=== PATIENT | male | born 1995 | race Caucasian/White ===

== ENCOUNTER 2019-02-06 10:16 | Day surgery (SDC) | payer BC ==
[~2019-02-06] VITALS: Ht 180.3 cm; Wt 80.0 kg
[2019-02-06 11:20] VITALS: BP 128/73; PULSE 66; TEMP 97.8
[2019-02-06] MEDS ORDERED: NORCO 325 MG-51 TAB PO (12:48)
[2019-02-06] MEDS ORDERED: MOTRIN 600600 MG/TAB PO (15:39)
[2019-02-06 15:43] VITALS: TEMP 98
[2019-02-06 16:00] VITALS: BP 122/55; PULSE 57
--- NOTE | 2019-02-06 16:00 | NUR ---
Patient returns to room 6 per cart from PACU and is awake and alert. Temp 97.4 and room air sats 97%. Right foot dressing clean and dry and denies pain at present time. Foot of cart elevated. IV fluids infusing and denies nausea. Given water to drink.
[2019-02-06 16:15] VITALS: BP 129/62; PULSE 51
--- NOTE | 2019-02-06 16:15 | NUR ---
Drinking water and continues to deny pain or nausea. Dago wrap dressing dry on the right foot.
[2019-02-06 16:30] VITALS: BP 127/67; PULSE 61
--- NOTE | 2019-02-06 16:30 | NUR ---
Patient is eating toast and applesauce.
[2019-02-06 16:45] VITALS: BP 104/87; PULSE 49
--- NOTE | 2019-02-06 16:45 | NUR ---
States that he is ready to go home. Instructed to take Motrin 600mg every 6 hours for pain and to begin at 2100. Instructed to take Motrin with food or milk.
--- NOTE | 2019-02-06 16:55 | NUR ---
IV discontinued and patient dresses self. Provided follow up appointment date and time and office number for questions and concerns. Instructed on remaining non-weight bearing for the next week and to keep dressing dry until follow up for suture removal.
--- NOTE | 2019-02-06 17:05 | NUR ---
Patient dismissed to home per private vehicle driven by friend with instructions in hand. Patient escorted to the ER entrance with use of knee scooter to keep weight off the right foot and assisted into car with instructions in hand.
== END 2019-02-06 17:05 | disposition home or self-care (01) ==
LOC: SDCO 10:16
DX: S90.851A Superficial foreign body, right foot, initial encounter (principal); Z80.3 Family history of malignant neoplasm of breast; Z80.8 Family history of malignant neoplasm of other organs or systems; F17.210 Nicotine dependence, cigarettes, uncomplicated
CPT/HCPCS: J0690; J1100; J1885; J2405; J2704; J3010; J7120

== ENCOUNTER 2019-06-06 04:04 | Emergency (ER) | payer BC ==
[~2019-06-06] VITALS: Ht 180.3 cm; Wt 84.1 kg
[~2019-06-06 04:04] MED LIST: MOTRIN 600600 MG/TAB PO; NORCO 325 MG-51 TAB PO
[2019-06-06 04:43] LABS: TRICYCLIC ANTIDEPRESS URINE NEGATIVE
[2019-06-06 04:43] LABS: BASO % 0.4 % (0.0-2.0); EOS # 0.2 (0.0-0.7); EOS % 1.6 % (0-4.0); GRAN # 6.3 (1.4-6.5); GRAN % 67.4 % (42.2-75.2); HEMATOCRIT 43.5 % (42.0-52.0); HEMOGLOBIN 15.3 g/dl (13.5-18.0); LYMPH # 2.3 (1.2-3.4); LYMPH % 24.5 % (20.0-51.0); MEAN CELL VOLUME 91 fl (80.0-100.0); MEAN CORPUSCULAR HEMOGLOBIN 32 pg (27.0-31.0); MEAN CORPUSCULAR HGB CONC 35 g/dl (33.0-37.0); MONO # 0.5 (0.1-0.6); MONO % 5.7 % (1.7-9.3); PLATELET COUNT 243 K/mm3 (130-400); RED BLOOD COUNT 4.77 M/mm3 (4.20-5.60); REDCELL DISTRIBUTION WIDTH-CV 11.5 % (11.5-14.5)
[2019-06-06 04:57] LABS: ACETAMINOPHEN < 10 ug/mL (10-30); ALANINE AMINOTRANSFERASE 22 U/L (21-72); ALBUMIN 5.3 gm/dL (3.5-5.0); ALCOHOL(ethanol),MEDICAL 173 mg/dL; ALKALINE PHOSPHATASE 87 U/L (50-136); ANION GAP 16 mmol/L (7-16); AST,SGOT 27 U/L (15-37); BILIRUBIN,TOTAL 0.3 mg/dL (0.0-1.0); BLOOD UREA NITROGEN 12 mg/dL (9-20); CALCIUM 9.5 mg/dL (8.4-10.2); CARBON DIOXIDE 24 mmol/L (22-30); CHLORIDE 105 mmol/L (98-107); CREATININE, serum 0.94 (0.66-1.25); GLUCOSE 107 mg/dL (74-106); SALICYLATE < 1.0 mg/dL; SODIUM 145 mmol/L (137-145); TOTAL PROTEIN 8.7 gm/dL (6.4-8.2)
[2019-06-06 09:05] VITALS: BP 145/68; TEMP 98.3
[2019-06-06 11:20] VITALS: PULSE 73
== END 2019-06-06 11:20 | disposition home or self-care (01) ==
LOC: COL.ER 04:04
PROVIDERS: Emergency Medicine
DX: F32.9 Major depressive disorder, single episode, unspecified (principal); F17.210 Nicotine dependence, cigarettes, uncomplicated

== ENCOUNTER → 2019-12-19 | Outpatient (CLI) | payer BC | LOC: COL.RAD 10:47 | DX: R68.84 Jaw pain (principal); S09.93XA Unspecified injury of face, initial encounter ==

== ENCOUNTER 2020-03-03 03:38 | Emergency (ER) | payer BC ==
[~2020-03-03] VITALS: Ht 180.3 cm; Wt 84.5 kg
[2020-03-03 03:49] VITALS: TEMP 99.1
[2020-03-03] MEDS ORDERED: AMOXICILLIN 8751 TAB PO (05:46)
[2020-03-03 06:48] VITALS: BP 110/57; PULSE 84
== END 2020-03-03 06:57 | disposition home or self-care (01) ==
LOC: COL.ER 03:38
DX: S62.522B Displaced fracture of distal phalanx of left thumb, initial encounter for open fracture (principal); S61.112A Laceration without foreign body of left thumb with damage to nail, initial encounter; S61.132A Puncture wound without foreign body of left thumb with damage to nail, initial encounter; F10.929 Alcohol use, unspecified with intoxication, unspecified; W54.0XXA Bitten by dog, initial encounter

== ENCOUNTER 2021-04-13 14:12 | Emergency (ER) | payer SELFPAY ==
[~2021-04-13 14:12] MED LIST changes: +AMOXICILLIN 8751 TAB PO
[2021-04-13 14:48] VITALS: BP 123/66; PULSE 73; TEMP 98
== END 2021-04-13 14:48 | disposition home or self-care (01) ==
LOC: COL.ER 14:12
DX: Z48.02 Encounter for removal of sutures (principal)

== ENCOUNTER 2021-04-19 09:03 | Outpatient (RCR) | payer OTHER | END 2021-07-18 | disposition home or self-care (01) | LOC: WSOH | DX: Z48.02 Encounter for removal of sutures (principal); S11.81XD Laceration without foreign body of other specified part of neck, subsequent encounter; Z98.890 Other specified postprocedural states; Y99.0 Civilian activity done for income or pay ==